=== PATIENT | male | born 1990 | race Two or more races ===

== ENCOUNTER 2017-11-15 15:41 | Emergency (ER) | payer SELFPAY ==
[~2017-11-15] VITALS: Ht 180.3 cm; Wt 86.2 kg
[2017-11-15] MEDS ORDERED: IBUPROFEN 600 MG TAB PO ONE (16:00)
[2017-11-15] MEDS ORDERED: ACETAMINOPHEN 325 MG TAB PO ONE (16:00)
[2017-11-15 16:42] VITALS: BP 119/74
== END 2017-11-15 17:35 | disposition home or self-care (01) ==
LOC: ER 15:45
DX: S43.102A Unspecified dislocation of left acromioclavicular joint, initial encounter (principal); S09.90XA Unspecified injury of head, initial encounter; R42 Dizziness and giddiness; W18.39XA Other fall on same level, initial encounter; Y93.89 Activity, other specified; Y92.89 Other specified places as the place of occurrence of the external cause; Y99.8 Other external cause status
CPT/HCPCS: 70450; 73030